=== PATIENT | female | born 1975 | race African-American/Black ===

== ENCOUNTER 2018-05-11 02:46 | Emergency (ER) | payer SELFPAY ==
[~2018-05-11] VITALS: Ht 149.9 cm; Wt 103.0 kg
[2018-05-11] MEDS ORDERED: ALBUTEROL (0.083%) 2.5MG/3ML NEB HHN STA (04:04)
[2018-05-11] MEDS ORDERED: LEVOFLOXACIN 750MG PREMIX 150 ML IV STA (04:04)
[2018-05-11] MEDS ORDERED: METHYLPREDNISOLONE SOD SUCC 125 MG/2 ML VIAL IV STA (04:04)
[2018-05-11] MEDS ORDERED: IPRATROPIUM BROMIDE (0.02%) 0.5MG/2.5ML NEB HHN STA (04:04)
[2018-05-11 04:07] VITALS: BP 139/85
[2018-05-11] MEDS ORDERED: MAGNESIUM 2 G PREMIX 50 ML IV ONE (04:15)
[2018-05-11] MEDS ORDERED: ASPIRIN 81MG TABLET PO ONE (04:15)
[2018-05-11] MEDS ORDERED: NITROGLYCERIN OINT 1GM/INCH UDPKT TD ONE (04:15)
[2018-05-11] MEDS ORDERED: FAMOTIDINE 20MG/2ML VIAL IV STA (04:16)
[2018-05-11 04:53] LABS: BASOPHILS % 0.3 % (0.0-2.0); EOSINOPHILS % 0.7 % (0.0-5.0); HEMATOCRIT. 35.7 % (36.0-48.0); LYMPHOCYTES % 14.3 % (20.0-50.0); MEAN CORPUSCULAR HEMOGLOBIN 30.5 pg (28.0-32.0); MEAN CORPUSCULAR VOLUME 90.7 fL (81.0-99.0); MEAN PLATELET VOLUME 8.8 fl (7.4-10.4); MONOCYTES % 7.5 % (2.0-8.0); NEUTROPHILS % 77.2 % (40.0-76.0); PLATELET 265 x1000/uL (130-400); RED BLOOD CELL COUNT 3.94 mill/uL (4.2-5.4); RED CELL DISTRIBUTION WIDTH 13.5 % (11.6-14.6)
[2018-05-11 04:56] LABS: CHLORIDE 104 mEq/L (98-107)
[2018-05-11 04:58] LABS: HCG SCREEN NEGATIVE; PROTHROMBIN TIME 10.5 sec (9.4-11.6)
[2018-05-11 04:59] LABS: ETHANOL BLOOD < 10 mg/dL
== END 2018-05-11 05:32 | disposition left against medical advice (07) ==
LOC: ER 02:46 → CANBEDREQ 07:35
DX: R10.9 Unspecified abdominal pain (principal); R06.00 Dyspnea, unspecified; R60.9 Edema, unspecified; R11.2 Nausea with vomiting, unspecified; J45.909 Unspecified asthma, uncomplicated
CPT/HCPCS: 36415; 71045; 80053; 83605; 83690; 83880; 84484; 84703; 85025; 85610; 87040; 93005; 96374; 99285; G0482; J2930; Z7610